=== PATIENT | male | born 1970 | race Caucasian/White ===

== ENCOUNTER 2020-11-09 19:16 | Outpatient (CLI) | payer MEDICAID, SELFPAY ==
[2020-11-09 20:15] LABS: Basophils % 0.4 %; Eosinophils # 0.4 10^3/uL (0.0-0.8); Eosinophils % 7.4 %; Hematocrit 42.9 % (42.0-52.0); Hemoglobin 14.3 g/dL (11.7-16.6); Lymphocytes # 0.9 10^3/uL (0.8-4.8); Lymphocytes % 15.7 %; Mean Corpuscular HGB Conc 33.3 g/dL (30.0-36.0); Mean Corpuscular Hemoglobin 32.9 pg (28.0-34.0); Mean Corpuscular Volume 98.6 fl (80-94); Mean Platelet Volume 11.7 fL (7.4-10.4); Monocytes # 0.4 10^3/uL (0.2-0.9); Monocytes % 7.8 %; Neutrophils % 68.5 %; Nucleated Red Blood Cells % 0 %; Platelet Count 173 10^3/cmm (130-400); Red Blood Count 4.35 10^6/uL (4.1-5.3); Red Cell Distribution Width 12.6 % (12.1-15.1); White Blood Count 5.5 10^3/uL (4.0-10.0)
[2020-11-09 20:53] LABS: Alanine Aminotransferase 16 U/L (0-41); Albumin Level 4.1 g/dL (3.5-5.2); Alkaline Phosphatase 72 IU/L (40-130); Anion Gap 16.8 (5-19); Aspartate Amino Transferase 17 U/L (0-40); Blood Urea Nitrogen 13 mg/dL (6-20); Calcium 8.9 mg/dL (8.5-10.5); Carbon Dioxide 26 mmol/L (22-29); Chloride 102 mmol/L (98-107); Globulin 2.7 g/dL (1.3-4.6); Glucose 70 mg/dL (65-115); Osmolality Calculated 291 mOsm/kg (285-295); Potassium 3.8 mmol/L (3.5-5.1); Sodium 141 mmol/L (136-145); Total Bilirubin 0.5 mg/dL (0.15-1.2); Total Protein 6.8 g/dL (6.6-8.7)
== END 2020-11-09 19:17 | disposition home or self-care (01) ==
PROVIDERS: Visit Provider General Practice
DX: D86.9 Sarcoidosis, unspecified (principal)
CPT/HCPCS: 80053; 85025

== ENCOUNTER → 2021-02-05 13:11 | Outpatient (BNVA) | payer MEDICAID, SELFPAY | PROVIDERS: Visit Provider Surgery | DX: Z01.812 Encounter for preprocedural laboratory examination (principal); Z20.822 Contact with and (suspected) exposure to COVID-19 | CPT/HCPCS: 87635 ==

== ENCOUNTER 2021-02-08 05:26 | Day surgery (SDC) | payer MEDICAID, SELFPAY ==
[2021-02-07 13:31] VITALS: BMI 37.5
[2021-02-08] VITALS (8 sets, daily range): BP systolic 108–148; BP diastolic 72–83; PULSE 59–66; RESP 16–27; TEMP 36.2–36.9; O2SAT 90–97
[2021-02-08] MEDS: sodium chloride 0.9% 1,000 ML 30 ML IV (06:32)
--- NOTE | 2021-02-08 06:45 | W.PM.OPSUD ---
Surgery/Procedure H&P Update DATE OF PROCEDURE: February 08, 2021 DATE H&P PERFORMED: 01/23/21 H&P UPDATE INFORMATION: No changes to prior documentation PREOP DIAGNOSIS: Incarcerated incisional hernia. PLANNED PROCEDURE: Operation Date: 02/08/21 07:30 Proposed Procedures p Reduction and Repair of Incarcerated Incisional Hernia Repair [id number] K43.2(Not Applicable) - Brian Pereyra MD
--- NOTE | 2021-02-08 06:46 | ANES.PREANE2 ---
Pre-Anesthetic Assessment Pre-Anesthetic Assessment: Height/Weight: Height 1.85 m Weight 129.274 kg Temp Pulse Resp BP Pulse Ox 98 F 66 16 148/75 96 02/08/21 06:13 02/08/21 06:13 02/08/21 06:13 02/08/21 06:13 02/08/21 06:13 Preop Diagnosis: Incarcerated incisional hernia. Proposed Procedure: Operation Date: 02/08/21 07:30 Proposed Procedures p Reduction and Repair of Incarcerated Incisional Hernia Repair [id number] K43.2(Not Applicable) - Brian Pereyra MD Was Beta Doc taken within 24 hours: N/A Was Clonidine taken within 24 hours: N/A Last intake: Intake Last Liquid Date 02/07/21 Last Liquid Time 23:45 Last Solid Date 02/07/21 Last Solid Time 19:00 Social: Social History: No alcohol and No tobacco Exam: Pre-Anes Outpt Exam: alert, oriented x 3, clear to auscultation bilaterally and regular rate & rhythm Airway: Submandibular: WNL Cervical ROM: WNL MP: 2 Pulmonary: Comments: Sarcoidosis CV/HEM: CV/HEM: HTN : : None reported Hepatic: Hepatic: None reported GI: GI: None reported Metabolic: Metabolic: None reported Musc/skel: Musc/skel: None reported Neuropsych: Neuropsych: None reported Anesthetic Plan: ASA status: 3 Anesthesia: General Meds/Allergies Current Medications: Current Medications Generic Name Dose Route Start Last Admin Trade Name Freq PRN Reason Stop Dose Admin Sodium Chloride 1,000 mls @ 30 ml s/hr 02/08/21 06:00 02/08/21 06:32 Sodium Chloride 0.9% IV 02/09/21 05:59 30 mls/hr .Q24H BRONSON Administration Data Anesthesia Cardiac Studies: No Data to Display
[2021-02-08 07:30] LABS: Blood Urea Nitrogen 16 mg/dL (6-20); Calcium 8.9 mg/dL (8.5-10.5); Carbon Dioxide 24 mmol/L (22-29); Chloride 101 mmol/L (98-107); Glucose 91 mg/dL (65-115); Osmolality Calculated 291 mOsm/kg (285-295); Sodium 140 mmol/L (136-145)
[2021-02-08 07:35] LABS: Anion Gap 19.1 (5-19); Potassium 4.1 mmol/L (3.5-5.1)
--- NOTE | 2021-02-08 07:59 | PM.OP ---
Operative Report Date of procedure: February 08, 2021 Pre-op Diagnosis: Incarcerated incisional hernia. Post-op diagnosis: same Procedure Done: Reduction and repair of incarcerated incisional hernia. Specimens removed/disposition: Hernia sac with incarcerated omentum. Surgeon: Brian Pereyra Sales And Marketing Director: first bret Wang RN for skin closure. Anesthesia: General Estimated blood loss (mL): 5 Complications: None. Condition: stable Disposition: PACU Procedure: The patient was brought to the operating room and was placed in a supine position on the operating room table. General anesthesia was induced by means of a laryngeal mask airway. The abdomen was prepped and draped in a sterile fashion. The hernia was still not reducible after the induction of anesthesia. A combination of 1% lidocaine with 1 to 100,000 parts epinephrine and 0.5% bupivacaine was used for local anesthesia throughout the procedure. A transverse incision was carried out above the ventral hernia just above the umbilicus. Cautery was used to divide the subcutaneous tissue and the hernia sac was identified. It was carefully freed from the surrounding subcutaneous tissue in the dependent portion of the umbilical skin using blunt dissection and cautery. The hernia sac was eventually opened at the fascial level and the patient had some incarcerated omentum within it. The omentum was serially divided and ligated with ties of 2-0 Vicryl and the hernia sac and the omentum were excised. The wound was irrigated with saline. The patient's hernia defect only measured perhaps 2.5 cm in greatest diameter. The surrounding fascia appeared to be in good condition. The defect was closed transversely using multiple inverted interrupted sutures of #1 Prolene. The repair was buttressed with some sutures of 0 Vicryl in between. The dependent portion of the umbilical skin was brought back down to the fascial layer using a simple suture of 0 Vicryl. A final round of irrigation was carried out. The dermis was approximated using multiple inverted interrupted sutures of 3-0 Vicryl. The skin was reapproximated using a running subcuticular suture of 3-0 Vicryl. Benzoin and Steri-Strips were placed over the incision and a sterile bandage followed. The patient was taken to the recovery area in stable condition postoperatively.
[2021-02-08] MEDS: fentaNYL 50 mcg/mL INJ 2mL IVP (08:20)
[2021-02-08] MEDS: HYDROcodone-acetaminophen 5-325 mg Tablet 1 TAB PO (08:55)
--- NOTE | 2021-02-08 20:05 | ANE.PACU2 ---
Inpatient post-anesthesia follow up: Airway intact: Yes Vital signs: Temperature 97.5 F Pulse Rate 59 Respiratory Rate 16 Blood Pressure 108/75 Pulse Oximetry 95 Oxygen Delivery Me thod Room Air Oxygen Flow Rate 3 Fraction of Inspir ed Oxygen Hydration adequate: Yes Nausea and vomiting: No Pain level: 4 Mental status: Baseline
== END 2021-02-08 09:14 | disposition home or self-care (01) ==
PROVIDERS: PCP Family Medicine; Visit Provider Surgery
PROC: (CPT 49561; principal; 2021-02-08 07:30)
DX: R10.84 Generalized abdominal pain (principal); F17.210 Nicotine dependence, cigarettes, uncomplicated
CPT/HCPCS: 49561; 36415; 80048; 88302; J0690; J1100; J2250; J2405; J2704; J3010; J3490; J7030

== ENCOUNTER 2021-05-09 11:40 | Outpatient (CLI) | payer MEDICAID, SELFPAY ==
--- NOTE | 2021-05-09 12:11 | XR_ITS ---
WS: [id number] PA and lateral chest, 05/09/2021 Clinical Data: SARCOIDOSIS Comparison: None. Findings: No nodules, masses or effusions are seen. There are interstitial markings extending from jesús th nhi into the mid portions of the lungs especially in the lower lobes. The upper lobes have been s pared. There is flattening of the diaphragms. The heart is normal. The aortic arch shows mild tortuos ity. XR/XR chest 2V* [id number] Impression: 1. Chronic interstitial markings extending from the nhi and of both lower lobe s consistent with chronic interstitial lung disease. 2. Hyperinflation.
== END 2021-05-09 11:41 | disposition home or self-care (01) ==
PROVIDERS: PCP Family Medicine; Visit Provider Family Medicine
DX: D86.9 Sarcoidosis, unspecified (principal)
CPT/HCPCS: 71046

== ENCOUNTER 2021-05-22 10:35 | Outpatient (CLI) | payer MEDICAID, SELFPAY ==
--- NOTE | 2021-05-22 10:50 | USCV_ITS ---
Harrison August Age: 50 Gender: M : 1970 Exam Date: 05/22/2021 11:02 Ordering Phys: Leonardo Koenig MD Technologist: ANTONIETA [place] [facility] [place]: [place]-Left leg pain HISTORY: Lower extremity pain. PROCEDURES: Venous duplex imaging was performed in only the left lower extremity. The following venous structures were evaluated: common femoral vein, profunda vein, proximal portion of the greater saphenous vein, superficial femoral vein, and the popliteal vein. In addition, the posterior tibial and peroneal trunk were evaluated. FINDINGS: Normal 2-D Doppler and augmentation and compressibility throughout the lower extremity venous structures. Additional imaging through the proximal calf veins also reveals no thrombus. Limited evaluation of the greater saphenous vein is patent with no thrombus. CONCLUSIONS No DVT left lower extremity. Dr. Lydia Pope DO (Electronically Signed) Final Date: 22 May 2021 15:48 S
== END 2021-05-22 10:36 | disposition home or self-care (01) ==
LOC: RAD 10:37
PROVIDERS: PCP Family Medicine; Visit Provider Family Medicine
DX: I82.402 Acute embolism and thrombosis of unspecified deep veins of left lower extremity (principal)
CPT/HCPCS: 93971

== ENCOUNTER 2021-08-09 14:55 | Outpatient (CLI) | payer MEDICAID, SELFPAY ==
--- NOTE | 2021-08-09 15:12 | XR_ITS ---
WS: [id number] Exam: XR lumbar spine 2-3V* [id number] Date/Time of Exam: 08/09/2021 3:15 PM Reason For Exam: CHRONIC LOW BACK PAIN No fracture or dislocation. Degenerative vacuum discs from L3 to S1. Associated spondylosis from L3 t o S1. Posterior elements are intact. Slight levoscoliosis that may be positional. Facet DJD at all le vels. XR/XR lumbar spine 2-3V* [id number] IMPRESSION: 1. No fracture or malalignment. 2. Moderate degenerative changes from L3 to S1 as discussed above.
== END 2021-08-09 14:56 | disposition home or self-care (01) ==
PROVIDERS: PCP Family Medicine; Visit Provider Family Medicine
DX: M54.50 Low back pain, unspecified (principal)
CPT/HCPCS: 72100